=== PATIENT | female | born 1995 | race Caucasian/White ===

== ENCOUNTER 2019-12-20 09:37 | Outpatient (CLI) | payer OTHER | END 2019-12-20 09:46 | disposition home or self-care (01) | LOC: SONOGRAMA 09:37 | DX: E04.2 Nontoxic multinodular goiter (principal) ==

== ENCOUNTER 2023-02-20 07:55 | Outpatient (CLI) | payer OTHER | END 2023-02-20 08:07 | disposition home or self-care (01) | LOC: SONOGRAMA 07:55 | DX: E04.2 Nontoxic multinodular goiter (principal); E06.3 Autoimmune thyroiditis; E03.8 Other specified hypothyroidism ==